=== PATIENT | female | born 1995 | race Caucasian/White ===

== ENCOUNTER → 2020-07-23 | Outpatient (CLI) | payer OTHER ==
--- NOTE | 2020-07-24 10:26 | CARD ---
MR#: [id number] Date of Study: 07/23/2020 Ordering Physician: ALDAIR GARG, Referring Physician: ALDAIR GARG, Tech: Airam Burroughs APPROVED REPORT EXAM: Two-dimensional and M-mode echocardiogram with Doppler and color Doppler. Other Information Quality : AverageHR: 65bpm INDICATION Dyspnea 2D DIMENSIONS RVDd3.2 (2.9-3.5cm)Left Atrium(2D)3.4 (1.6-4.0cm) IVSd0.7 (0.7-1.1cm)Aortic Root(2D)2.6 (2.0-3.7cm) LVDd5.0 (3.9-5.9cm)LVOT Diameter2.0 (1.8-2.4cm) PWd0.7 (0.7-1.1cm)LVDs3.1 (2.5-4.0cm) FS (%) 38.1 %SV79.7 ml LVEF(%)68.0 (>50%) Aortic Valve AoV Peak Brandt.150.7cm/sAoV VTI30.8cm AO Peak GR.9.1mmHgLVOT Peak Brandt.124.5cm/s LVOT VTI 25.39cmAO Mean GR.5mmHg JOSE (VMAX)1.50qd6ZWL (VTI)2.49cm2 Mitral Valve MV E Iieskgmi52.7cm/sMV DECEL [id number] MV A Wiqeuptm30.2cm/sMV AAV32ia E/A Ratio2.6MVA (PHT)4.02cm2 TDI E/Lateral E'4.8E/Medial E'7.7 Pulmonary Valve PV Peak Ferrzspe461.2cm/sPV Peak Grad.4mmHg Tricuspid Valve TR P. Ljnakwxz351ga/sRAP MAJOCXFP1uoFd TR Peak Gr.78xxYlYRVX86rcAq Pulmonary Vein S1 Goamnyqw04.7cm/sD2 Mnshhkep33.2cm/s PVa [id number] LEFT VENTRICLE The left ventricle is normal size. There is normal left ventricular wall thickness. The left ventricu lar systolic function is normal and the ejection fraction is within normal range. The Ejection Fracti on is 50-55%. There is normal LV segmental wall motion. The left ventricular diastolic function and f illing is normal for age. RIGHT VENTRICLE The right ventricle is normal size. There is normal right ventricular wall thickness. The right ventr icular systolic function is normal. ATRIA The left atrium size is normal. The right atrium size is normal. The interatrial septum is intact wit h no evidence for an atrial septal defect or patent foramen ovale as noted on 2-D or Doppler imaging. AORTIC VALVE The aortic valve is normal in structure and function. Doppler and Color Flow revealed no significant aortic regurgitation. There is no significant aortic valvular stenosis. Calculated aortic valve area is 2.51 cm2 with maximum pressure gradient of 11 mmHg and mean pressure gradient of 6 mmHg. MITRAL VALVE The mitral valve is normal in structure and function. There is no evidence of mitral valve prolapse. There is no mitral valve stenosis. Doppler and Color-flow revealed trace mitral regurgitation. TRICUSPID VALVE The tricuspid valve is normal in structure and function. Doppler and Color Flow revealed trace tricus pid regurgitation with an estimated PAP of 24 mmHg. There is no tricuspid valve stenosis. PULMONIC VALVE Doppler and Color Flow revealed trace pulmonic valvular regurgitation. There is no pulmonic valvular stenosis. GREAT VESSELS The aortic root is normal in size. The ascending aorta is normal in size. The IVC is normal in size a nd collapses >50% with inspiration. PERICARDIAL EFFUSION There is no evidence of significant pericardial effusion. Critical Notification Critical Value: No <Conclusion> The left ventricular systolic function is normal and the ejection fraction is within normal range. Th e Ejection Fraction is 50-55%. There is normal LV segmental wall motion. Signed by : Mark Feldman, Electronically Approved : 07/23/2020 12:30:13
== END ==
LOC: ECHO 09:48
PROVIDERS: ATTEND Internal Medicine Cardiovascular Disease
DX: R06.02 Shortness of breath (principal); R00.2 Palpitations
CPT/HCPCS: 93306